=== PATIENT | female | born 1995 | race African-American/Black ===

== ENCOUNTER 2017-04-30 10:39 | Emergency (ER) | payer BC ==
[~2017-04-30] VITALS: Ht 162.6 cm; Wt 77.1 kg
[~2017-04-30 10:39] MED LIST: CITRATE OF MAG296 ML PO; COLACE100 MG PO; DIFLUCAN150 M1 PO; FLAGYL500 MG PO; HYDROCODON-ACE1 EAC7; MONISTAT 3 COM1 EACH VG; NAPROSYN500 MG PO; NORCO 5-325 TA1 EACH PO; TRAMADOL 50 MG50 MG PO; ZOFRAN ODT4 MG PO
[2017-04-30 11:23] LABS: HEMATOCRIT 39.3 % (37.0-47.0); HEMOGLOBIN 13.4 gm/dL (12.0-15.0); MCH 30.9 pg (26.0-34.0); MCHC 34.1 g/dL (28.0-37.0); MCV 90.7 fL (80.0-100.0); PLATELET COUNT 260 thou/uL (150-400); RBC 4.33 mil/uL (4.20-5.00); RDW 13.5 % (10.5-14.5); WBC 21.1 thou/uL (4.0-11.0)
[2017-04-30 11:30] LABS: CALCIUM 9.4 mg/dL (8.5-10.1); CREATININE 0.8 mg/dL (0.6-1.0); POTASSIUM 3.4 mmol/L (3.5-5.1)
[2017-04-30 11:36] LABS: ALBUMIN 3.8 g/dL (3.4-5.0); TOTAL PROTEIN 7.5 g/dL (6.4-8.2)
[2017-04-30 13:14] LABS: ABSOLUTE NEUTROPHILS 16.5 thou/uL (1.4-8.2); PLATELET ESTIMATE NORMAL
[2017-04-30 13:22] LABS: URINE BILIRUBIN NEGATIVE (Negative); URINE BLOOD 3+ (Negative); URINE CLARITY CLEAR; URINE COLOR YELLOW; URINE GLUCOSE-RANDOM* NEGATIVE (Negative); URINE KETONES 1+ (Negative); URINE LEUKOCYTES-REFLEX NEGATIVE (Negative); URINE NITRITE-REFLEX NEGATIVE (Negative); URINE PROTEIN (DIPSTICK) NEGATIVE (Negative); URINE SPECIFIC GRAVITY 1.015 (1.005-1.035); URINE UROBILINOGEN 0.2 E.U./dl (0.2-1.0)
[2017-04-30 13:40] LABS: BACTERIA-REFLEX None Seen /HPF (None Seen); CASTS None Seen /LPF (None Seen); CRYSTALS None Seen /LPF (None Seen); SQUAMOUS >10 Many /LPF (0-3); URINE RBC 0-2 Rare /HPF (0-2); URINE WBC-REFLEX 0-5 Rare /HPF (0-5)
[2017-04-30] MEDS ORDERED: FLAGYL500 MG PO ×2 (13:52→13:56)
[2017-04-30] MEDS ORDERED: ZOFRAN ODT4 M1 PO ×2 (13:52→13:56)
[2017-04-30] MEDS ORDERED: DOXYCYCLINE 10100 MG PO (13:52)
== END 2017-04-30 14:42 | disposition home or self-care (01) ==
LOC: ER 10:39
PROVIDERS: Physician Assistant
DX: N73.9 Female pelvic inflammatory disease, unspecified (principal)

== ENCOUNTER 2017-05-12 17:16 | Emergency (ER) | payer BC ==
[~2017-05-12] VITALS: Ht 162.6 cm; Wt 73.9 kg
[~2017-05-12 17:16] MED LIST changes: +DOXYCYCLINE 10100 MG PO; +ZOFRAN ODT4 M1 PO
[2017-05-12 17:48] LABS: URINE BILIRUBIN NEGATIVE (Negative); URINE BLOOD 2+ (Negative); URINE CLARITY CLEAR; URINE COLOR YELLOW; URINE GLUCOSE-RANDOM* NEGATIVE (Negative); URINE KETONES NEGATIVE (Negative); URINE LEUKOCYTES NEGATIVE (Negative); URINE NITRITE NEGATIVE (Negative); URINE PROTEIN (DIPSTICK) NEGATIVE (Negative); URINE SPECIFIC GRAVITY <= 1.005 (1.005-1.035); URINE UROBILINOGEN 0.2 E.U./dl (0.2-1.0)
[2017-05-12 17:59] LABS: BACTERIA 1-9 Few /HPF (None Seen); CASTS None Seen /LPF (None Seen); CRYSTALS None Seen /LPF (None Seen); SQUAMOUS 4-10 Moderate /LPF (0-3); URINE RBC 0-2 Rare /HPF (0-2); URINE WBC 0-5 Rare /HPF (0-5); YEAST Present (None Seen)
[2017-05-12] MEDS ORDERED: NORFLEX100 MG PO (19:14)
[2017-05-12] MEDS ORDERED: TRAMADOL 50 MG50 MG PO (19:14)
== END 2017-05-12 19:41 | disposition home or self-care (01) ==
LOC: ER 17:16
PROVIDERS: Emergency Medicine
DX: S16.1XXA Strain of muscle, fascia and tendon at neck level, initial encounter (principal); S29.012A Strain of muscle and tendon of back wall of thorax, initial encounter; S39.91XA Unspecified injury of abdomen, initial encounter; S29.9XXA Unspecified injury of thorax, initial encounter; V89.2XXA Person injured in unspecified motor-vehicle accident, traffic, initial encounter; Y93.89 Activity, other specified; Y92.89 Other specified places as the place of occurrence of the external cause; Y99.8 Other external cause status

== ENCOUNTER 2017-05-22 22:36 | Emergency (ER) | payer BC ==
[~2017-05-22] VITALS: Ht 162.6 cm; Wt 75.8 kg
[~2017-05-22 22:36] MED LIST changes: +NORFLEX100 MG PO
[2017-05-22] MEDS ORDERED: NORFLEX100 MG PO (23:55)
[2017-05-22] MEDS ORDERED: NAPROSYN500 MG PO (23:55)
== END 2017-05-23 00:13 | disposition home or self-care (01) ==
LOC: ER 22:36
DX: S39.012A Strain of muscle, fascia and tendon of lower back, initial encounter (principal); X58.XXXA Exposure to other specified factors, initial encounter; Y93.89 Activity, other specified; Y92.89 Other specified places as the place of occurrence of the external cause; Y99.8 Other external cause status

== ENCOUNTER 2018-09-24 22:44 | Emergency (ER) | payer BC ==
[~2018-09-24] VITALS: Ht 162.6 cm; Wt 76.7 kg
[2018-09-24 23:51] LABS: ABSOLUTE NEUTROPHILS 3.9 thou/uL (1.4-8.2); BASOPHILS 1.3 % (0.0-2.0); EOSINOPHILS 5.6 % (0.0-3.0); HEMATOCRIT 45.4 % (37.0-47.0); HEMOGLOBIN 15.4 gm/dL (12.0-15.0); LYMPHOCYTES 37.3 % (24.0-44.0); MCHC 33.9 g/dL (28.0-37.0); MCV 91.5 fL (80.0-100.0); MONOCYTES 5.8 % (1.0-8.0); PLATELET COUNT 300 thou/uL (150-400); RBC 4.96 mil/uL (4.20-5.00); WBC 7.8 thou/uL (4.0-11.0)
[2018-09-25 00:14] LABS: CALCIUM 9.6 mg/dL (8.5-10.1); CREATININE 0.8 mg/dL (0.6-1.0)
[2018-09-25 01:55] LABS: URINE BILIRUBIN NEGATIVE (Negative); URINE BLOOD TRACE (Negative); URINE CLARITY CLEAR; URINE COLOR YELLOW; URINE GLUCOSE-RANDOM* NEGATIVE (Negative); URINE KETONES NEGATIVE (Negative); URINE LEUKOCYTES-REFLEX NEGATIVE (Negative); URINE NITRITE-REFLEX NEGATIVE (Negative); URINE PROTEIN (DIPSTICK) TRACE (Negative); URINE SPECIFIC GRAVITY >= 1.030 (1.005-1.035); URINE UROBILINOGEN 0.2 E.U./dl (0.2-1.0)
[2018-09-25 02:20] VITALS: BP 109/83
== END 2018-09-25 02:20 | disposition home or self-care (01) ==
LOC: ER 22:44
PROVIDERS: Emergency Medicine
DX: E86.0 Dehydration (principal)

== ENCOUNTER 2018-10-05 22:58 | Emergency (ER) | payer BC ==
[~2018-10-05] VITALS: Ht 162.6 cm; Wt 73.5 kg
[2018-10-05 23:12] VITALS: BP 118/66
[2018-10-06] MEDS ORDERED: ONDANSETRON ODT8 MG PO (01:58)
[2018-10-06 02:14] LABS: URINE BILIRUBIN NEGATIVE (Negative); URINE BLOOD TRACE (Negative); URINE COLOR YELLOW; URINE GLUCOSE-RANDOM* NEGATIVE (Negative); URINE KETONES NEGATIVE (Negative); URINE LEUKOCYTES-REFLEX TRACE (Negative); URINE NITRITE-REFLEX NEGATIVE (Negative); URINE PROTEIN (DIPSTICK) NEGATIVE (Negative); URINE SPECIFIC GRAVITY 1.025 (1.005-1.035); URINE UROBILINOGEN 0.2 E.U./dl (0.2-1.0)
[2018-10-06 02:15] LABS: URINE CLARITY CLOUDY
== END 2018-10-06 02:15 | disposition home or self-care (01) ==
LOC: ER 22:58
PROVIDERS: Emergency Medicine
DX: N89.8 Other specified noninflammatory disorders of vagina (principal); R11.2 Nausea with vomiting, unspecified; R19.7 Diarrhea, unspecified; R10.84 Generalized abdominal pain

== ENCOUNTER 2019-04-23 21:21 | Emergency (ER) | payer BC ==
[~2019-04-23] VITALS: Ht 162.6 cm; Wt 76.2 kg
[~2019-04-23 21:21] MED LIST changes: +ONDANSETRON ODT8 MG PO
[2019-04-23 22:25] LABS: URINE BILIRUBIN NEGATIVE (Negative); URINE BLOOD NEGATIVE (Negative); URINE CLARITY CLEAR; URINE COLOR YELLOW; URINE GLUCOSE-RANDOM* NEGATIVE (Negative); URINE KETONES NEGATIVE (Negative); URINE LEUKOCYTES-REFLEX NEGATIVE (Negative); URINE NITRITE-REFLEX NEGATIVE (Negative); URINE PROTEIN (DIPSTICK) NEGATIVE (Negative); URINE UROBILINOGEN 0.2 E.U./dl (0.2-1.0)
[2019-04-23 23:50] LABS: ABSOLUTE NEUTROPHILS 4.1 thou/uL (1.4-8.2); BASOPHILS 1.3 % (0.0-2.0); EOSINOPHILS 6.5 % (0.0-3.0); HEMATOCRIT 40.3 % (37.0-47.0); HEMOGLOBIN 13.1 gm/dL (12.0-15.0); LYMPHOCYTES 30.3 % (24.0-44.0); MCH 30.5 pg (26.0-34.0); MCHC 32.6 g/dL (28.0-37.0); MCV 93.3 fL (80.0-100.0); MONOCYTES 5.8 % (1.0-8.0); PLATELET COUNT 287 thou/uL (150-400); POLYS 56.1 % (36.0-66.0); RBC 4.31 mil/uL (4.20-5.00); RDW 13.3 % (10.5-14.5); WBC 7.3 thou/uL (4.0-11.0)
[2019-04-24 00:39] LABS: CALCIUM 8.8 mg/dL (8.5-10.1); CREATININE 0.8 mg/dL (0.6-1.0); POTASSIUM 3.6 mmol/L (3.5-5.1)
[2019-04-24 00:45] LABS: ALBUMIN 3.9 g/dL (3.4-5.0); TOTAL BILIRUBIN 0.4 mg/dL (<0.1-1.0); TOTAL PROTEIN 8.1 g/dL (6.4-8.2)
[2019-04-24] MEDS ORDERED: IBUPROFEN 800800 M1 PO ×2 (04:56→05:09)
[2019-04-24] MEDS ORDERED: BENTYL 20 MG TA20 M1 PO ×2 (04:56→05:09)
[2019-04-24 05:13] VITALS: BP 105/65
== END 2019-04-24 05:13 | disposition home or self-care (01) ==
LOC: ER 21:21
PROVIDERS: Emergency Medicine; Physician Assistant
DX: R10.2 Pelvic and perineal pain (principal); R10.31 Right lower quadrant pain

== ENCOUNTER 2019-06-11 08:10 | Observation (INO) | payer BC ==
[~2019-06-11] VITALS: Ht 162.6 cm; Wt 80.7 kg
[2019-06-11 08:10] VITALS: BP 121/80
[~2019-06-11 08:10] MED LIST changes: +BENTYL 20 MG TA20 M1 PO; +IBUPROFEN 800800 M1 PO
[2019-06-11 08:55] LABS: HEMATOCRIT 45.3 % (37.0-47.0); HEMOGLOBIN 15.3 gm/dL (12.0-15.0); MCH 31.5 pg (26.0-34.0); MCHC 33.8 g/dL (28.0-37.0); MCV 93.1 fL (80.0-100.0); PLATELET COUNT 209 thou/uL (150-400); RBC 4.86 mil/uL (4.20-5.00); RDW 13.2 % (10.5-14.5); WBC 5.3 thou/uL (4.0-11.0)
[2019-06-11 09:03] LABS: CALCIUM 9.3 mg/dL (8.5-10.1); POTASSIUM 3.8 mmol/L (3.5-5.1)
[2019-06-11 09:35] LABS: ABSOLUTE NEUTROPHILS 3.9 thou/uL (1.4-8.2); PLATELET ESTIMATE NORMAL
[2019-06-11 10:47] VITALS: BP 111/67
[2019-06-11 11:00] VITALS: BP 118/71
[2019-06-11 11:36] VITALS: BP 112/63
--- NOTE | 2019-06-11 14:49 | NUR ---
ASSUMED CARE OF PT APPROX 1145. PT A&OX4, VSS, PAIN IN RIGHT HAND, MIDDLE FINGER BLISTERED, EDEMA, WITH RASH GOING UP ARM. NO SIGNS OF DISTRESS. WILL CONTINUE TO MONITOR.
--- NOTE | 2019-06-11 15:39 | NUR ---
PT ADMITTED RELATED TO R HAND CELLULITIS, R/O FLEXORTENOSNUOVITIS. CM REVIEWED CHART. CM ATTEMPTED PT TO PT IN ROOM THIS AFTERNOON BUT RECIEVED NO RESPONSE. CM TO CONTINUE TO ATTEMPT TO REACH PT THERE HAD BEEN POSSIBLE MENTION OF OP IV ABX NEEDS UPON DC. CM TO FOLLOW INDICATED WITH DC PLANNING.
[2019-06-11 15:50] VITALS: BP 116/73
[2019-06-11 19:15] VITALS: BP 11/70
--- NOTE | 2019-06-12 02:53 | NUR ---
RECIEVED CARE OF THIS PATIENT AT 1900. PATIENT ALERT AND ORIENTED X4. UP AD ANANT. DRESSING D/I ON R HAND. C/O PAIN, MED GIVEN WITH GOOD RELIEF. IN IN LAC PATENT WITH IV FLUIDS INFUSING, S;EPT MOST OF NIGHT.
[2019-06-12 04:22] VITALS: BP 105/57
[2019-06-12 05:51] LABS: HEMATOCRIT 40.3 % (37.0-47.0); HEMOGLOBIN 13.7 gm/dL (12.0-15.0); MCH 31.5 pg (26.0-34.0); MCHC 34.1 g/dL (28.0-37.0); MCV 92.6 fL (80.0-100.0); PLATELET COUNT 202 thou/uL (150-400); RBC 4.35 mil/uL (4.20-5.00); WBC 4.1 thou/uL (4.0-11.0)
[2019-06-12 05:53] LABS: CALCIUM 8.6 mg/dL (8.5-10.1); CREATININE 1.1 mg/dL (0.6-1.0); MAGNESIUM 1.9 mg/dL (1.8-2.4); POTASSIUM 3.9 mmol/L (3.5-5.1)
[2019-06-12 07:50] VITALS: BP 101/53
[2019-06-12 08:54] LABS: ABSOLUTE NEUTROPHILS 2.9 thou/uL (1.4-8.2); PLATELET ESTIMATE NORMAL
--- NOTE | 2019-06-12 14:18 | NUR ---
PT ADMITTED RELATED TO I&D OF RIGHT MIDDLE FINGER ABCESS. CM REVIEWED CHART AND SPOKE WITH CARE TEAM THIS DAY. CM CALLED AND SPOKE WITH AND SHE INDICATED THAT HER MOTHER WAS AT BEDSIDE OBSERVING DRESSING CHANGE. PT IS A&O X4. CM ROLE INTRODUCED. PT INDICATED SHE LIVES IN A HOUSE WITH HER GRANDMOTHER. CM INDICATED THAT THERE ARE [address] SHE STAYS. PT INDICATED SHE DOESN'T HAVE A PCP BUT THAT HER MOM CAN ASSIST HER WITH CALLING NUMBER ON BACK OF INSURANCE CARD TO [employer]. PT INDICATED THAT SHE AND MOTHER WERE LEARING HOW DO DO DRESSING CHANGES AND THAT PT COULD AFFORD ANY MEDICATIONS ORDERED UPON DC. CM TO FOLLOW INDICATED WITH DC PLANNING.
[2019-06-12 17:06] VITALS: BP 104/69
--- NOTE | 2019-06-12 18:26 | NUR ---
VSS-AFEBRILE. LUNGS CLEAR-ROOM AIR. OOB AD ANANT-STEADY ON FEET. PAIN WELL CONTROLLED WITH PO PAIN MEDICATIONS. RIGHT FINGER DRESSING CHANGED ORDERED THROUGH SHIFT. MODERATE AMOUNT OF SANGUINEOUS DRAINAGE TO DRESSING. PATIENTS MOTHER PRESENT FOR DRESSING CHANGES, AND WILL COMPLETE THIRD DAILY CHANGE FOR PRACTICE WHEN PATIENT RETURNS HOME WITH HER. PARTIAL BED BATH GIVE, TOTAL LINEN CHANGE PERFORMED. CALLS APPROPRIATELY FOR ANY NEEDED ASSISTANCE.
[2019-06-12 19:35] VITALS: BP 103/63
--- NOTE | 2019-06-13 02:26 | NUR ---
ASSUMED CARE OF PT @1900 PT ASSESSED AT START OF SHIFT LEARNING DRESSING CHANGE AT BEDSIDE. IV INTACT AND FLUIDS INFUISING. PAIN MEDS GIVEN AFTER DRESSING CHANGE. PT AD ANANT. DRESSING INTACT AND PT SLEPT THE REST OF THE SHIFT. WILL CONT TO MONITOR TILL EOS.
[2019-06-13 04:20] VITALS: BP 113/53
[2019-06-13 08:00] VITALS: BP 113/53
--- NOTE | 2019-06-13 10:17 | O ---
[facility] [address] OPERATIVE REPORT Name: REYNALDO KWOK Room #: 441-P ADM IN M.R.#: [id number] Admission: 06/11/19 Attend Phys: Cleve Skelton MD Discharge: Date of : 89 Report #: [id number] THIS REPORT FOR: cc: NO FAMILY PHYSICIAN or PCP NO FAMILY PHYSICIAN or PCP Raciel Johnson MD ~ CC: Cleve Skelton NO PCP DATE OF SERVICE: 06/11/2019 SERVICE: Orthopedics. FACILITY: [facility]. SURGEON: Raciel Johnson MD INDEPENDENT PRODUCER: Celeste Claire. PREOPERATIVE DIAGNOSES: 1. Right long finger abscess. 2. Right long finger developing flexor tenosynovitis. POSTOPERATIVE DIAGNOSES: Right long finger abscess. PROCEDURES: 1. I and D, soft tissue abscess, right long finger. 2. I and D, right long finger flexor tendon. COMPLICATIONS: None. DRAINS: None. SPECIMENS: 1. Cultures for aerobic and anaerobic of the dorsal finger wound/abscess. 2. Cultures taken of the deep flexor sheath. FINDINGS: 1. Minimal purulent fluid and serous fluid within the blister on the dorsal long finger. No signs of septic arthritis. 2. No purulence within the flexor tendon sheath. HISTORY AND INDICATIONS: The patient is a young lady who had evolving infection of the right long finger that progressed to the point of significant pain and dysfunction, and in the Emergency Room, she had clinical findings that were concerning for flexor tenosynovitis. She had clear evidence of a blister on the [facility] [address] [place] [address] OPERATIVE REPORT Name: REYNALDO KWOK Esa Room #: 441-P [facility] IN ..#: [id number] Admission: 06/11/19 Attend Phys: Cleve Skelton MD Discharge: Date of : [birth year] Report #: [id number] dorsal side of the finger and the abscess in this area, but also had tenderness along the flexor tendon, a flexed posture and pain with passive extension. She was indicated for surgical treatment. Risks, benefits, alternatives and indications of surgery were discussed with her in detail. Risks include but not limited to pain, bleeding, infection, persistence, need for further surgery, stiffness as well as complications related to anesthesia such as stroke, heart attack, pulmonary complications, thromboembolic disease and . Despite these risks, she wished to proceed. PROCEDURE IN DETAIL: After right upper extremity was correctly identified in preoperative holding area as operative extremity, the patient underwent general anesthesia. She had tourniquet applied to right arm. Right upper extremity was then prepped and draped in standard sterile fashion. Timeout procedure performed. The arm was exsanguinated via elevation and then tourniquet was inflated to 250 mmHg. The long finger blister was opened with the longitudinal incision on the radial border of the long finger middle segment dorsal to the flexor creases. Serous fluid was immediately seen to egress and the incision was taken down to the deep layer. The bone was visualized. Blunt exploration was performed. Cultures were taken of the fluid. Within this area, there was approximately 1-2 drops of purulence, but otherwise everything was clean, there was some desquamed skin which was removed sharply and gentle debridement was performed down to the bony layer. Hand was then supinated and I made a transverse incision over the MCP as well as the DIP and dissection down to the flexor sheath. Blunt dissection was performed within the flexor sheath and no fluid was seen to egress. No signs of deep space infection and then a blunt angiocatheter was placed into the flexor sheath and then approximately 400 mL of fluid was irrigated along the flexor sheath after cultures were taken. Irrigation was run from distal to proximal as well as proximal to distal and clear fluid was seen to egress on both sides throughout the irrigation. We did additional irrigation on the dorsal finger abscess wound as well and then let the tourniquet down and obtained hemostasis. The wounds were then packed with dry gauze. A small piece of Xeroform placed on the desquamed portion of the dorsal side of the middle segment of the long finger and then a sterile gauze dressing was applied to the right hand. The patient was awakened from anesthesia and taken to recovery room in stable condition. No complications. All counts were correct. <ELECTRONICALLY SIGNED> By: Raciel Johnson MD 06/13/19 [id number] Raciel Johnson MD /nt
[2019-06-13 10:34] LABS: HEMATOCRIT 39.9 % (37.0-47.0); HEMOGLOBIN 13.4 gm/dL (12.0-15.0); MCH 31.2 pg (26.0-34.0); MCHC 33.5 g/dL (28.0-37.0); MCV 93.4 fL (80.0-100.0); PLATELET COUNT 195 thou/uL (150-400); RBC 4.28 mil/uL (4.20-5.00); RDW 13.2 % (10.5-14.5); WBC 5.6 thou/uL (4.0-11.0)
--- NOTE | 2019-06-13 11:03 | HC ---
[facility] [place] [address] CONSULTATION Name: REYNALDO KWOK Room #: 441-P [facility] IN .R.#: [id number] Admission: 06/11/19 Attend Phys: Cleve Skelton MD Discharge: Date of : 89 Report #: [id number] THIS REPORT FOR: cc: NO FAMILY PHYSICIAN or PCP NO FAMILY PHYSICIAN or PCP Santos Bobby MD ~ CC: Cleve Skelton NO PCP DATE OF SERVICE: 06/11/2019 INFECTIOUS DISEASE CONSULTATION REASON FOR CONSULTATION: I was asked to evaluate concerning right third finger soft tissue infection. HISTORY OF PRESENT ILLNESS: A 23-year-old otherwise healthy individual who noticed increased pain and swelling involving her right third finger approximately 1 week ago. This progressed along with erythema involving her hand, forearm and upper arm into her axilla. Denied any fever, chills or sweats. She had some pruritus with the rash involving her hand and forearm. No nausea, vomiting or diarrhea. 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 She reports no recent trauma. However, she had injury to her third finger in 10/2018 with a laceration. This was treated at [facility], and she was treated with antibiotic therapy and it improved. Imaging studies here showed no foreign body. She has no history of diabetes. No medications at home. She was given a tetanus booster today. SOCIAL HISTORY: She is a nonsmoker, no significant alcohol intake. REVIEW OF SYSTEMS: A 14-point review was negative other than what has been described above. ALLERGIES: None known. MEDICATIONS: As noted on her MAR, with dose of Zosyn given in the Emergency Room along with vancomycin. FAMILY HISTORY: Noncontributory. Social history as noted above. PHYSICAL EXAMINATION: VITAL SIGNS: Afebrile and hemodynamically stable. GENERAL: Alert, cooperative and pleasant, in no acute distress. Examination was limited to her right upper extremity. She was on her way down for surgery. [address] [address] CONSULTATION Name: REYNALDO KWOK Room #: 441-P [facility] IN [facility].#: [id number] Admission: 06/11/19 Attend Phys: Cleve Skelton MD Discharge: Date of : 89 Report #: [id number] A sister in her room as she was getting ready to leave. EXTREMITIES: She had 1+ swelling involving the right third finger with fluctuance medially along the middle phalanx. There was bullous formation with purulence beneath. There was erythema extending from the digit proximally over the dorsum of her hand and forearm, medial upper arm, which was tender along this margin. She had no palpable adenopathy, but did have mild tenderness in her axilla. Capillary refill in her fingers was normal. Sensation to touch was normal. She had reasonable denture contour wire specialist strength. She did have tenderness with passive flexion of the digit along the dorsum of her hand. Wrist was normal. Pulses in her wrist were normal. She had erythema as noted above. LABORATORY STUDIES: Reviewed. IMPRESSION: Right third finger soft tissue abscess with evidence of tenosynovitis. RECOMMENDATIONS: We will continue IV antibiotic therapy. Obtain cultures from the soft tissues at surgery today. We will then determine length of therapy. I have discussed with the patient and her mother at the bedside. Reevaluate postop. <ELECTRONICALLY SIGNED> By: Santos Bobby MD 06/13/19 1103 [id number] 1330 Santos Bobby MD /nt
[2019-06-13 11:20] LABS: ABSOLUTE NEUTROPHILS 2.7 thou/uL (1.4-8.2); PLATELET ESTIMATE NORMAL
--- NOTE | 2019-06-13 11:43 | NUR ---
PT CARE ASSUMED AT 0700.A&Ox4. PT IS COMPLAINING ABOUT A HEADACHE THAT WAS RESOLVED WITH A COFFEE AND PAIN MEDICATION. PT. PERFORMED DRESSING CHANGE HERSELF UNDER OBSERVATION AND IS KNOWLEDGEABLE AND CAN PERFORM IT HERSELF. PT IS PENDING DISCHARGE. SCRIPT SENT TO OUTPATIENT PHARMACY. CALL LIGHT IN REACH.
[2019-06-13 11:58] VITALS: BP 113/53
[2019-06-13] MEDS ORDERED: NORCO 5-325 TA1 EAC1 PO (12:42)
[2019-06-13] MEDS ORDERED: ZYVOX600 MG PO (12:43)
[2019-06-13 12:51] VITALS: BP 113/53
--- NOTE | 2019-06-13 13:32 | NUR ---
CARE TEAM INDICATED THAT PT IS MEDICALLY STABLE TO DISCHARGE HOME THIS DAY. PT AND MOTHER HAD BEEN TAUGHT HOW TO DO HER TID DRESSING CHANGES AND WOUND CARE. PT PUT ON ORAL ABX PT INDICATED SHE CAN FILL PERSCRIPTION UPON DC. NO OTHER CM INTERVENTION INDICATED. CASE CLOSED.
== END 2019-06-13 13:49 | disposition home or self-care (01) ==
LOC: ER 08:10 → 4S 10:30 → EROBS 10:30 → 4S 11:43
PROVIDERS: Emergency Medicine; Nurse Practitioner; Orthopaedic Surgery Sports Medicine; ADMIT Hospitalist
DX: L02.511 Cutaneous abscess of right hand (principal); Z72.0 Tobacco use
CPT/HCPCS: 10102; 50010; 50101; 50386; 57091; 57178; 62110; 62900; 70005

== ENCOUNTER 2019-09-17 18:31 | Emergency (ER) | payer BC ==
[~2019-09-17] VITALS: Ht 162.6 cm; Wt 76.2 kg
[~2019-09-17 18:31] MED LIST changes: +NORCO 5-325 TA1 EAC1 PO; +ZYVOX600 MG PO
[2019-09-17 18:55] LABS: ABSOLUTE NEUTROPHILS 5.6 thou/uL (1.4-8.2); BASOPHILS 0.6 % (0.0-2.0); EOSINOPHILS 4.1 % (0.0-3.0); HEMATOCRIT 42.7 % (37.0-47.0); HEMOGLOBIN 14.9 gm/dL (12.0-15.0); LYMPHOCYTES 23.9 % (24.0-44.0); MCH 32.8 pg (26.0-34.0); MCHC 34.9 g/dL (28.0-37.0); MCV 93.9 fL (80.0-100.0); MONOCYTES 5.9 % (1.0-8.0); PLATELET COUNT 306 thou/uL (150-400); POLYS 65.5 % (36.0-66.0); RBC 4.55 mil/uL (4.20-5.00); RDW 12.9 % (10.5-14.5); WBC 8.5 thou/uL (4.0-11.0)
[2019-09-17 19:03] LABS: CALCIUM 9.4 mg/dL (8.5-10.1); POTASSIUM 3.8 mmol/L (3.5-5.1)
[2019-09-17 19:09] LABS: ALBUMIN 3.9 g/dL (3.4-5.0); TOTAL BILIRUBIN 0.5 mg/dL (0.2-1.0); TOTAL PROTEIN 8.1 g/dL (6.4-8.2)
[2019-09-17 19:21] LABS: URINE BILIRUBIN NEGATIVE (Negative); URINE BLOOD TRACE (Negative); URINE CLARITY CLEAR; URINE COLOR YELLOW; URINE GLUCOSE-RANDOM* NEGATIVE (Negative); URINE KETONES NEGATIVE (Negative); URINE LEUKOCYTES-REFLEX NEGATIVE (Negative); URINE NITRITE-REFLEX NEGATIVE (Negative); URINE PROTEIN (DIPSTICK) NEGATIVE (Negative); URINE UROBILINOGEN 0.2 E.U./dl (0.2-1.0)
[2019-09-17] MEDS ORDERED: OMEPRAZOLE40 MG PO (20:23)
[2019-09-17] MEDS ORDERED: CARAFATE 1 GM TA1 G1 PO (20:23)
[2019-09-17 20:40] VITALS: BP 107/60
--- NOTE | 2019-09-18 08:12 | EKG ---
[facility] [place] [address] [place] [address] ELECTROCARDIOGRAM REPORT Name: REYNALDO KWOK Room #: [facility]#: [id number] Admission: 09/17/19 Attend Phys: Discharge: 09/17/19 Date of : 89 Report #: [id number] THIS REPORT FOR: cc: JAYA - Thalia family physician/PCP JAYA - Thalia family physician/PCP Yogesh Bucio MD ~ THIS REPORT FOR: //name// [facility] ED Test Date: 2019-09-17 Test Time: 18:56:07 Pat Name: REYNALDO KWOK Department: Room: Gender: Engineering [employer]: [facility] : 1995 Requested By: Sathya Gorman Order Number: [id number] MD: Yogesh Bucio Measurements Intervals [place] Rate: 64 P: 4 IL: 137 QRS: 67 QRSD: 84 T: 38 QT: 385 QTc: 398 Interpretive Statements Sinus rhythm Compared to ECG 12/09/2013 22:15:02 Sinus arrhythmia no longer present Electronically Signed On 09-18-2019 8:11:57 CDT by Yogesh Bucio [email or web address] <ELECTRONICALLY SIGNED> By: Yogesh Bucio MD 09/18/19810 55 55 Yogesh Bucio MD /EPI
== END 2019-09-17 20:41 | disposition home or self-care (01) ==
LOC: ER 18:31
PROVIDERS: Physician Assistant
DX: K21.9 Gastro-esophageal reflux disease without esophagitis (principal); F41.0 Panic disorder [episodic paroxysmal anxiety]; R11.2 Nausea with vomiting, unspecified; R19.7 Diarrhea, unspecified; R00.2 Palpitations

== ENCOUNTER 2020-05-06 20:08 | Emergency (ER) | payer BC ==
[~2020-05-06] VITALS: Ht 165.1 cm; Wt 78.9 kg
[~2020-05-06 20:08] MED LIST changes: +CARAFATE 1 GM TA1 G1 PO; +OMEPRAZOLE40 MG PO
[2020-05-06 20:51] LABS: ABSOLUTE NEUTROPHILS 4.7 thou/uL (1.4-8.2); BASOPHILS 0.7 % (0.0-2.0); EOSINOPHILS 4.4 % (0.0-3.0); HEMATOCRIT 42.5 % (37.0-47.0); HEMOGLOBIN 14.4 gm/dL (12.0-15.0); LYMPHOCYTES 25.3 % (24.0-44.0); MCH 31.3 pg (26.0-34.0); MCHC 33.8 g/dL (28.0-37.0); MCV 92.5 fL (80.0-100.0); MONOCYTES 7.6 % (1.0-8.0); PLATELET COUNT 267 thou/uL (150-400); RDW 12.9 % (10.5-14.5); WBC 7.5 thou/uL (4.0-11.0)
[2020-05-06 21:00] LABS: CALCIUM 9.3 mg/dL (8.5-10.1); CREATININE 0.8 mg/dL (0.6-1.0); POTASSIUM 3.6 mmol/L (3.5-5.1)
[2020-05-06 21:06] LABS: ALBUMIN 4.2 g/dL (3.4-5.0); TOTAL BILIRUBIN 0.8 mg/dL (0.2-1.0); TOTAL PROTEIN 7.8 g/dL (6.4-8.2)
[2020-05-06] MEDS ORDERED: BACTRIM DS TAB1 EACH PO (21:12)
[2020-05-06 21:29] VITALS: BP 115/65
== END 2020-05-06 21:29 | disposition home or self-care (01) ==
LOC: ER 20:08
PROVIDERS: Physician Assistant
DX: L02.511 Cutaneous abscess of right hand (principal); Z79.899 Other long term (current) drug therapy